=== PATIENT | female | born 1945 | race Caucasian/White ===

== ENCOUNTER 2016-04-14 22:48 | Emergency (ER) | payer MEDICARE, OTHER ==
[~2016-04-14] VITALS: Ht 162.6 cm; Wt 59.1 kg
[2016-04-14] MEDS ORDERED: LIDOCAINE (LIDODERM) 5% PATCH TOP ONE (23:15)
[2016-04-14] MEDS ORDERED: KETOROLAC 60 MG/2 ML (TORADOL) VIAL IM ONE (23:15)
[2016-04-14] MEDS ORDERED: oxyCODONE/ACETAMINOPHEN 5MG-325 MG (PERCOCET) TABLET PO ONE (23:15)
[2016-04-14] MEDS ORDERED: ORPHENADRINE 60 MG/2 ML (NORFLEX) AMP IM ONE (23:55)
[2016-04-14] MEDS ORDERED: ALBUTEROL 0.083% NEB SOLUTION 2.5 MG/3 ML VIAL INH ONE (23:55)
[2016-04-15 02:24] VITALS: BP 119/72
== END 2016-04-15 00:22 | disposition home or self-care (01) ==
LOC: ED 22:49
DX: S20.211A Contusion of right front wall of thorax, initial encounter (principal); X58.XXXA Exposure to other specified factors, initial encounter
CPT/HCPCS: 71101; 93005; 94640; 96372; 99284; A9270; J1885; J2360; J7613; 93010

== ENCOUNTER 2016-06-12 16:44 | Inpatient (IN) | payer MEDICARE, OTHER ==
[~2016-06-12] VITALS: Ht 162.6 cm; Wt 55.6 kg
[~2016-06-12 16:44] MED LIST: ACET325T38 PO; ALPR1TAB2 PO; AZIT250T PO; CYCL10TA45 PO; DIPH25CA79 PO; DOXY100C42 PO; FLC1T PO; GFN600TCR PO; IBP800T PO; LD5PT TOP; LEVA1.253 IH; METH1VIA2 SC; OXYC1TAB87 PO; PRD20T PO; TIOT18CA IH; TRM50T PO
[2016-06-12] MEDS ORDERED: HYDROmorphone 1 MG/ML (DILAUDID) SYRINGE IV ONE (17:25)
[2016-06-12 17:54] LABS: BILIRUBIN,URINE Negative (Negative); COLOR,URINE Yellow; GLUCOSE, URINE (UA) Negative (Negative); LEUKOCYTE ESTERASE ,URINE Negative (Negative); UROBILINOGEN,URINE 0.2 mg/dL (0.2-1.0)
[2016-06-12 17:55] LABS: BASOPHILS % (AUTO) 0 % (0-2); EOSINOPHILS # (AUTO) 0.1 10^3uL; EOSINOPHILS % (AUTO) 1 % (0-4); LYMPHOCYTES # (AUTO) 1.6 X10^3; MEAN CORPUSCULAR HEMOGLOBIN 30.8 PG (26.0-34.0); MEAN CORPUSCULAR HGB CONC 32.2 g/dL (31.0-37.0); MEAN CORPUSCULAR VOLUME 96 FL (80-100); MEAN PLATELET VOLUME 12.1 FL (6.0-9.5); MONOCYTES # (AUTO) 0.3 X10^3; MONOCYTES % (AUTO) 3 % (3-11); NEUTROPHILS # (AUTO) 8.2 X10^3; NEUTROPHILS % (AUTO) 81 % (51-67); PLATELET COUNT 309 10^3uL (150-450); WHITE BLOOD COUNT 10.15 10^3uL (4.0-11.0)
[2016-06-12 17:56] LABS: CLARITY,URINE Slightly Cloudy
[2016-06-12 17:59] LABS: RBC,URINE None Seen /HPF; URINE CENTRIFUGED VOLUME 12 mL
[2016-06-12 18:05] LABS: ANION GAP 17.4 MEQ/L (3-15); CALCULATED IONIZED CALCIUM 3.4 mg/dL (3.8-4.6); TOTAL PROTEIN 8.8 g/dL (6.4-8.5)
[2016-06-12] MEDS ORDERED: KETOROLAC 30 MG/ML (TORADOL) 1 ML VIAL IV ONE (18:20)
[2016-06-12] MEDS ORDERED: PIPERACILLIN/TAZOBACTAM 3.375 GM in SODIUM CHLORIDE 50 ML IV ONE (18:20)
--- NOTE | 2016-06-12 19:20 | NUR ---
Pt arrives to room 310 via wheelchair, accompanied by daughter and Ida RN. Alert and oriented x 4, Resp are even and nonlabored, hear wheezes bilateral with diminished bases, HRRR, BS are active x 4 quadrants. SL to RBH is patent, no redness, swelling, or s/s of infection noted at this time. Does have a temp of 100.8, does report chest pain, rates 6/10, Dr. Green is aware, EKG ordered, Tropi's ordered, ASA 325mg 1 tab PO given now per order. Gave Tylenol 650mg PO for temp. EKG showed NSR, Tropi is WNL, denies further pain or discomfort at this time. Call light is in reach, bed alarm is on, will continue to monitor.
[2016-06-12 19:24] VITALS: BP 120/73
[2016-06-12 19:27] VITALS: BP 120/73
[2016-06-12] MEDS ORDERED: ONDANSETRON 4 MG (ZOFRAN) ORAL DISSOLVE TAB PO PRN (19:40)
[2016-06-12] MEDS ORDERED: NITROGLYCERIN SUBLINGUAL 0.4 MG (NITROQUICK) TABLET SL PRN (19:40)
[2016-06-12] MEDS ORDERED: MAGNESIUM HYDROXIDE 80MG/ML (MILK OF MAGNESIA) 30 ML UDC PO PRN (19:40)
[2016-06-12] MEDS ORDERED: DOCUSATE SODIUM 100 MG (COLACE) CAP PO PRN (19:40)
[2016-06-12] MEDS ORDERED: ALBUTEROL 0.083% NEB SOLUTION 2.5 MG/3 ML VIAL INH PRN (19:40)
[2016-06-12] MEDS ORDERED: ACETAMINOPHEN 325 MG TAB (TYLENOL) PO PRN (19:40)
[2016-06-12] MEDS ORDERED: ALPRAZolam 0.5 MG (XANAX) TAB PO PRN (19:40)
[2016-06-12] MEDS ORDERED: diphenhydrAMINE 25 MG (BENADRYL) TABLET PO PRN (19:40)
[2016-06-12] MEDS ORDERED: PROMETHAZINE HCL INJ 12.5 MG in SODIUM CHLORIDE 25 ML IV PRN (19:40)
[2016-06-12] MEDS ORDERED: MAG HYDROX/AL HYDROX/SIMETH 200-200-20/5 ML (MAG-AL PLUS) 30 ML UDC PO PRN (19:40)
[2016-06-12] MEDS ORDERED: HYDROmorphone 1 MG/ML (DILAUDID) SYRINGE IV PRN (19:40)
[2016-06-12] MEDS ORDERED: CALCIUM CARBONATE CHEWABLE 300 MG (TUMS) TABLET PO PRN (19:40)
[2016-06-12] MEDS ORDERED: ASPIRIN 325 MG TAB PO ONE (19:40)
[2016-06-12] MEDS ORDERED: POLYETHYLENE GLYCOL 17 GM (MIRALAX) PACKET PO PRN (19:40)
--- NOTE | 2016-06-12 19:45 | History and Physical (E) ---
History & Physical PCP: Jose Walter CC: Pain HPI Deja Delaney is a 71 year old female admitted from ED 06/12 where she presented form home with complaint of pain. She has been having fever at home with chills, up to 100.3 reportedly. Feeling very achy all over, worse in hands and knees. Of note, she has RA and got a methotrexate injection 06/10. In ED, afebrile. Mildly hypertensive. Tach with HR 107. 94% RA. RR was 20. WBC 10.15 with 81% N but no bands. Chemistry fairly unremarkable but CRP was 7.70. UA suggestive of dehydration. CXR shows some linear basilar linear opacities, somewhat correlating with CT scan of chest from 04/19/2016. She was coughing some reportedly and there was overall concern of this being early pneumonia. CURB-65 score of 1. In ED she was given pip-tazo, NS bolus, and she was then admitted for further management. On arrival to unit, awake, interactive, oriented. Breathing easily on room air. Able to relate history. Sister is present and she contributes as well. Illness as described above. No worse dyspnea. Sister insists she is coughing more but patient says no. Has not used extra breathing treatments. No objective fever but has felt chilled. No rash. No URI symptoms. Has had some lower rib pains. Had told PCP about this but apparently there was concern this was more GI- related. She has history of ulcers so PCP had started omeprazole. Otherwise, she denies new complaints. 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 * Pneumonia * PSH * Partial gastrectomy * Asplenia (performed at time of partial gastrectomy) * Hysterectomy * Cholecystectomy * Appendectomy * Cataract surgery ALLERGIES: Please see list at end of report. HOME MEDICATIONS: Please see list at end of report. FH Mom of stomach cancer. Father of bone cancer. Sister of cervical cancer. Another sister of brain aneurysm and she had lupus. On additional sister has cervical cancer. SH Lives in her own home in [place]. Has two sons that live with her. Sister lives next door. 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 Quit smoking in 2013. No alcohol use. No drug use. ROS CONSTITUTION: Weight going down. Fever/chills as described above. Decreased appetite. HEENT: No change in vision or hearing. No sores in mouth, sore throat. CV: Sternal chest pains, worse with taking deep breath. PULM: Some increased but non-productive cough. GI: No upset stomach, nausea, vomiting, constipation, or diarrhea. No blood in stool. : No dysuria. No blood in urine. MS: Per HPI, exam. NEURO: No numbness or tingling. No weakness. INTEG: No rashes, lesions, or sores. ENDO: No heat or cold intolerance. No polydipsia or polyuria. HEME/LYMPH: No easy bruising or bleeding. No swollen glands. PSYCH: No change in mood or behavior. OBJECTIVE Vital Signs Date Time Temp Pulse Resp B/P Pulse Ox O2 Delivery O2 Flow Rate FiO2 06/12/16 16:58 99.1 107 20 169/95 94 Room Air GEN: Awake, alert, oriented, NAD at present. HEENT: EOMI, clear sclerae, somewhat dry oral mucosa. CV: Mildly tachy but regular without significant murmur. LUNGS: CTA B with faint and intermittent basilar rales. ABD: Soft, NT/ND with normal bowel sounds. EXTR: No C/C/E. Normal peripheral pulses. INTEG: No rash. Age related changes. NEURO: No focal motor neuro deficit. Weight: 56.8 kg Laboratory Results-14 Days 06/12/16 17:30: Urine Bacteria None seen, Urine Bilirubin Negative, Urine Blood Negative, Urine Clarity Slightly cloudy, Urine Collection Type Clean catch, Urine Color Yellow, Urine Glucose (UA) Negative, Urine Hyaline Casts 1+H, Urine Ketones TraceH, Urine Leukocyte Esterase Negative, Urine Microscopic RBC None seen, Urine Mucus 1+, Urine Nitrite Negative, Urine Protein 1+H, Urine Specific [place] 1.020, Urine Squamous Epithelial Cells 10-20, Urine Urobilinogen 0.2, Urine WBC 0-2, Urine pH 6.0, Volume Urine Centrifuged 12 ml 06/12/16 17:44: Alanine Aminotransferase (ALT/SGPT) 24L, Albumin 4.0, Albumin/Globulin Ratio 0.833L, Alkaline Phosphatase 101, Anion Gap 17.4H, Aspartate Amino Transf (AST/ SGOT) 26, BUN/Creatinine Ratio 18, Basophils # (Auto) 0.0, Basophils (%) (Auto) 0, Blood Urea Nitrogen 19#H, C-Reactive Protein 7.70H, Calcium Level 8.8, Calcium/Ionized Calcium Ratio 3.4L, Calculated Osmolality 275L, Carbon Dioxide Level 23, Chloride Level 106, Creatinine 1.03, Eosinophils # (Auto) 0.1, Eosinophils (%) (Auto) 1, Estimat Glomerular Filtration Rate 63.9, Estimated GFR (Non- 52.8, Glucose Level 105#, Hematocrit 35.10, Hemoglobin 11.3L, Lactic Acid Level 1.3, Lymphocytes # (Auto) 1.6, Lymphocytes ( %) (Auto) 15L, Mean Corpuscular Hemoglobin 30.8, Mean Corpuscular Hemoglobin Concent 32.2, Mean Corpuscular Volume 96, Mean Platelet Volume 12.1H, Monocytes # (Auto) 0.3, Monocytes (%) (Auto) 3, Neutrophils # (Auto) 8.2, Neutrophils (%) (Auto) 81H, Platelet Count 309, Potassium Level 4.7#, Red Blood Count 3.67L, Red Cell Distribution Width 14.1, Sodium Level 141, Total Bilirubin 0.5, Total Protein 8.8H, White Blood Count 10.15 MICRO 06/12 Blood culture PENDING 06/12 Sputum culture PENDING SAMPLE IMAGING 06/12/2016 CXR: Radiologist interpretation pending. Basilar linear opacities concerning for pneumonia. REFERENCE PROCEDURE: CT angiography Chest TECHNIQUE: After intravenous administration of contrast, thin section axial CT angiography of the chest was performed. MIP reconstructions were made. INDICATION: Right-sided chest pain. COMPARISON: CT chest of 12/18/2015. FINDINGS: No pulmonary emboli. Stable cardiomegaly without evidence of pulmonary hypertension or right ventricular strain. No pericardial effusion. Thoracic aorta is normal in caliber without evidence of dissection. Visualized thyroid is normal. No supraclavicular or axillary lymphadenopathy. No mediastinal, hilar, or juxtaphrenic lymphadenopathy. No pleural effusion or pneumothorax. Centrilobular emphysema is greatest in the lung apices. There has been development of multifocal subtotal consolidations in the lung bases, most confluent and greatest in the posterior right lower lobe. No suspicious pulmonary nodules. No endoluminal lesion in the trachea or central bronchi. Visualized portions of the upper abdomen are unremarkable allowing for the phase of contrast. No suspicious osseous lesions in the thorax. Bilateral breast implants are in place. There is suggestion of extracapsular rupture on the medial and inferior aspect of the left implant, unchanged from prior exam. IMPRESSION: 1. No pulmonary emboli. 2. Bilateral lower lobe patchy consolidations are greatest on the right and likely represent multifocal pneumonia. Followup PA and lateral chest radiographs in 4-6 weeks after appropriate medical management is recommended to ensure resolution. These consolidations are new since CT chest of 12/18/2015. ASSESSMENT Deja Delaney is a 71 year old female admitted from ED 06/12 with fever, chills, and CXR findings concerning for community acquired pneumonia. She has underlying emphysematous COPD and she has immunosuppression due to steroid use and methotrexate for RA. She has other chronic problems. PLAN * Acute Respiratory Distress: Mild on admit. Oxygen protocol, IS. * Community Acquired Pneumonia: Complex because of history of immunosuppression and underlying COPD. Blood culture pending. Sputum pending sample. Pip-tazo started in ED. Continued on admit. Could potentially de-escalate pending culture results. * COPD with Acute Exacerbation: Tiotropium, albuterol (sub for levalbuterol.) Guaifenesin. Prednisone burst. * Chest Pain: Likely pleuritic but cannot rule out ACS. Check troponin trend, EKG. Aspirin 324 mg given on admit. Continue daily. * Dehydration: NS bolus given in ED. Additional 1 L maintenance. I&O, daily weight. * Prophylaxis: Enoxaparin * F/E/N: Genearal diet. IVF as above. Peripheral IV. I&O, daily weight. * Code Status: Full * Dispo: Inpatient. Expect 2-3 day stay. CHRONIC ISSUES * Anxiety: alprazolam * Insomnia: Diphenhydramine * Chronic Pain, RA: Ibuprofen, tramadol Allergies/Home Medications Allergies: Coded Allergies: No Known Allergies (Verified Allergy, Unknown, 01/02/16) Reported Home Medications Scheduled Diphenhydramine HCl (Benadryl) 25 MG PO HS (Reported) Folic Acid (Folic Acid) 1 MG PO DAILY (Reported) Ibuprofen (Ibuprofen) 800 MG PO TID (Reported) Lidocaine HCl (Lidoderm 5% Patch) 1 EA TOP DAILY Methotrexate Sodium/Pf (Methotrexate 1 gm Vial) 0.06 GM IJ UD (Reported) Oxycodone HCl/Acetaminophen (Percocet 5mg/325mg) 1-2 TAB PO Q 6H PRN Tiotropium [place] (Spiriva) 18 MCG IH DAILY (Reported) Scheduled PRN Acetaminophen (Tylenol) 650 MG PO Q6H PRN PRN PAIN (Reported) Alprazolam (Xanax) 1 MG PO TID PRN PRN ANXIETY (Reported) Cyclobenzaprine HCl (Flexeril) 10 MG PO TID PRN PRN PAIN Levalbuterol HCl (Xopenex) 1.25 MG IH QID PRN PRN DYSPNEA (Reported) Tramadol HCl (Tramadol HCl) 1-2 TAB PO Q6H PRN PRN PAIN Copies to: End of Report . MER LEBLANC MD Jun 12, 2016 19:00
[2016-06-12 19:47] VITALS: BP 120/73
[2016-06-12] MEDS ORDERED: SODIUM CHLORIDE FLUSH 10 ML ONE (19:58)
[2016-06-12] MEDS ORDERED: predniSONE 10 MG (DELTASONE) TABLET ONE (19:58)
[2016-06-12] MEDS: predniSONE 20 MG (DELTASONE) TABLET PO SCH (20:08)
[2016-06-12] MEDS: guaiFENesin ER 600 MG (MUCINEX) TAB PO SCH (20:12)
--- NOTE | 2016-06-12 20:44 | NUR ---
I visited with Mrs Minaya about her respiratory interventions. She stated that she only takes her Spiriva when she is short of breath, and does not like Albuterol, because it "gives me the shakes". I explained the proper use of Spiriva and that we would talk to the Dr in the am. She also told me that she does not want to become dependant on the medications. IS not done this evening due to Pt being a little upset, I was able to bet her to take some deep breaths with breath hold for me. SPO2 92% on RA, no respiratory distress at this time.
[2016-06-12] MEDS ORDERED: PIPERACILLIN/TAZOBACTAM 3.375 GM in SODIUM CHLORIDE 100 ML IV SCH (23:00)
[2016-06-12] MEDS: PIPERACILLIN/TAZOBACTAM 3.375 GM in SODIUM CHLORIDE 100 ML IV SCH (23:51)
[2016-06-13 00:14] VITALS: BP 108/68
[2016-06-13 04:19] VITALS: BP 100/65
--- NOTE | 2016-06-13 04:47 | NUR ---
Pt is resting in bed asleep, Resp are even and nonlabored, does not appear to be in pain or discomfort at this time. Call light is in reach, bed alarm is on, will continue to monitor.
[2016-06-13 06:00] LABS: MEAN CORPUSCULAR HGB CONC 32.2 g/dL (31.0-37.0); MEAN CORPUSCULAR VOLUME 96 FL (80-100); MEAN PLATELET VOLUME 11.9 FL (6.0-9.5); PLATELET COUNT 342 10^3uL (150-450); WHITE BLOOD COUNT 5.76 10^3uL (4.0-11.0)
[2016-06-13] MEDS: PIPERACILLIN/TAZOBACTAM 3.375 GM in SODIUM CHLORIDE 100 ML IV SCH ×3 (06:10→21:33)
[2016-06-13 06:12] LABS: ALBUMIN 3.3 g/dL (3.4-5.0); ANION GAP 14.9 MEQ/L (3-15); PHOSPHORUS 4.8 mg/dL (2.4-4.9)
[2016-06-13 06:15] LABS: BAND NEUTROPHILS % 1 % (0-6); EOSINOPHILS % 0 % (0-4); LYMPHOCYTES # 0.5 #; MONOCYTES # 0.1 #; MONOCYTES % 2 % (3-11); SEGMENTED NEUTROPHILS % 88 % (51-67); TOTAL CELLS COUNTED 100
[2016-06-13 06:16] LABS: RBC MORPH NORMAL (NORMAL)
[2016-06-13 07:33] VITALS: BP 92/51
--- NOTE | 2016-06-13 07:39 | Diagnostic Imaging Report ---
INDICATION: Respiratory distress. COMPARISON: 02/22/2015. FINDINGS: Bibasilar infiltrates, greater right than left have developed since the prior, suspect for pneumonia. The heart size is within normal limits. There is no free air beneath the diaphragms. No definite pleural effusion. IMPRESSION: Bilateral lower lobe infiltrates compatible with pneumonia reflect change from prior. Dictated by: Dictated on workstation # [id number]
[2016-06-13] MEDS: predniSONE 20 MG (DELTASONE) TABLET PO SCH (07:52)
--- NOTE | 2016-06-13 08:59 | Progress Note (E) ---
Progress Note S: Awake a nd reports feeling better- still coughing up a little phlegm, no vomiting, no chest paain. tolerated breakfast very well O: Vital Signs Date Time Temp Pulse Resp B/P Pulse Ox O2 Delivery O2 Flow Rate FiO2 06/13/16 07:33 96.8 70 16 92/51 93 Room air I & O Past 24 hrs 06/13/16 07:00 Intake Total 387 ml Output Total 450 ml Balance -63 ml Intake Oral 387 ml Output Urine Total 450 ml GEN: Awake, alert, oriented, NAD at present. HEENT: EOMI, clear sclerae, moist oral mucosa. CV: regular without significant murmur. LUNGS: CTA B with faint and intermittent basilar rales. ABD: Soft, NT/ND with normal bowel sounds. EXTR: No C/C/E. Normal peripheral pulses. INTEG: No rash. Age related changes. NEURO: No focal motor neuro deficit. Weight: 56.8 kg Laboratory Results Past 24 Hrs 06/12/16 17:30: Urine Bacteria None seen, Urine Bilirubin Negative, Urine Blood Negative, Urine Clarity Slightly cloudy, Urine Collection Type Clean catch, Urine Color Yellow, Urine Glucose (UA) Negative, Urine Hyaline Casts 1+, Urine Ketones Trace, Urine Leukocyte Esterase Negative, Urine Microscopic RBC None seen, Urine Mucus 1+, Urine Nitrite Negative, Urine Protein 1+, Urine Specific [place] 1.020, Urine Squamous Epithelial Cells 10-20, Urine Urobilinogen 0.2, Urine WBC 0-2, Urine pH 6.0, Volume Urine Centrifuged 12 ml 06/12/16 17:44: Alanine Aminotransferase (ALT/SGPT) 24, Albumin 4.0, Albumin/Globulin Ratio 0.833, Alkaline Phosphatase 101, Anion Gap 17.4, Aspartate Amino Transf (AST/ SGOT) 26, BUN/Creatinine Ratio 18, Basophils # (Auto) 0.0, Basophils (%) (Auto) 0, Blood Urea Nitrogen 19, C-Reactive Protein 7.70, Calcium Level 8.8, Calcium/ Ionized Calcium Ratio 3.4, Calculated Osmolality 275, Carbon Dioxide Level 23, Chloride Level 106, Creatinine 1.03, Eosinophils # (Auto) 0.1, Eosinophils (%) ( Auto) 1, Estimat Glomerular Filtration Rate 63.9, Estimated GFR (Non- 52.8, Glucose Level 105, Hematocrit 35.10, Hemoglobin 11.3, Lactic Acid Level 1.3, Lymphocytes # (Auto) 1.6, Lymphocytes (%) (Auto) 15, Mean Corpuscular Hemoglobin 30.8, Mean Corpuscular Hemoglobin Concent 32.2, Mean Corpuscular Volume 96, Mean Platelet Volume 12.1, Monocytes # (Auto) 0.3, Monocytes (%) (Auto) 3, Neutrophils # (Auto) 8.2, Neutrophils (%) (Auto) 81, Platelet Count 309, Potassium Level 4.7, Red Blood Count 3.67, Red Cell Distribution Width 14.1, Sodium Level 141, Total Bilirubin 0.5, Total Protein 8.8, Troponin I < 0.012, White Blood Count 10.15 06/12/16 21:55: Troponin I < 0.012 06/13/16 05:40: Albumin 3.3, Anion Gap 14.9, Basophils # (Auto) , Basophils (%) (Auto) , Blood Urea Nitrogen 15, Calcium Level 8.3, Carbon Dioxide Level 22, Chloride Level 109 , Creatinine 0.88, Eosinophils # (Auto) , Eosinophils (%) (Auto) , Estimat Glomerular Filtration Rate 76.6, Estimated GFR (Non- 63.3, Glucose Level 148, Hematocrit 36.30, Hemoglobin 11.7, Lymphocytes # (Auto) , Lymphocytes (%) (Auto) , Mean Corpuscular Hemoglobin 31.0, Mean Corpuscular Hemoglobin Concent 32.2, Mean Corpuscular Volume 96, Mean Platelet Volume 11.9, Monocytes # (Auto) , Monocytes (%) (Auto) , Neutrophils # (Auto) , Neutrophils ( %) (Auto) , Platelet Count 342, Potassium Level 4.1, Red Blood Count 3.78, Red Cell Distribution Width 14.3, Sodium Level 142, White Blood Count 5.76, Absolute Band Neutrophils 0.1, Band Neutrophils % 1, Basophils # (Manual) 0.0, Basophils % (Manual) 0, Blood Morphology Comment Normal, Differential Total Cells Counted 100, Eosinophils # 0.0, Eosinophils % (Manual) 0, Lymphocytes # 0.5, Lymphocytes % (Manual) 9, Monocytes # 0.1, Monocytes % (Manual) 2, Neutrophils # 5.1, Phosphorus Level 4.8, Segmented Neutrophils % 88 MICRO 06/12 Blood culture PENDING 04/16 Sputum culture PENDING SAMPLE IMAGING 06/12/2016 CXR: Radiologist interpretation pending. Basilar linear opacities concerning for pneumonia. REFERENCE PROCEDURE: CT angiography Chest TECHNIQUE: After intravenous administration of contrast, thin section axial CT angiography of the chest was performed. MIP reconstructions were made. INDICATION: Right-sided chest pain. COMPARISON: CT chest of 12/18/2015. FINDINGS: No pulmonary emboli. Stable cardiomegaly without evidence of pulmonary hypertension or right ventricular strain. No pericardial effusion. Thoracic aorta is normal in caliber without evidence of dissection. Visualized thyroid is normal. No supraclavicular or axillary lymphadenopathy. No mediastinal, hilar, or juxtaphrenic lymphadenopathy. No pleural effusion or pneumothorax. Centrilobular emphysema is greatest in the lung apices. There has been development of multifocal subtotal consolidations in the lung bases, most confluent and greatest in the posterior right lower lobe. No suspicious pulmonary nodules. No endoluminal lesion in the trachea or central bronchi. Visualized portions of the upper abdomen are unremarkable allowing for the phase of contrast. No suspicious osseous lesions in the thorax. Bilateral breast implants are in place. There is suggestion of extracapsular rupture on the medial and inferior aspect of the left implant, unchanged from prior exam. IMPRESSION: 1. No pulmonary emboli. 2. Bilateral lower lobe patchy consolidations are greatest on the right and likely represent multifocal pneumonia. Followup PA and lateral chest radiographs in 4-6 weeks after appropriate medical management is recommended to ensure resolution. These consolidations are new since CT chest of 12/18/2015. ASSESSMENT Deja Delaney is a 71 year old female admitted from ED 06/12 with fever, chills, and CXR findings concerning for community acquired pneumonia. She has underlying emphysematous COPD and she has immunosuppression due to steroid use and methotrexate for RA. She has other chronic problems. PLAN * Acute Respiratory Distress: Mild on admit. Oxygen protocol, IS. * Community Acquired Pneumonia: Complex because of history of immunosuppression and underlying COPD. Blood culture pending. Sputum pending sample. Pip-tazo started in ED. Continued on admit. Could potentially de-escalate pending culture results. * COPD with Acute Exacerbation: Tiotropium, albuterol (sub for levalbuterol.) Guaifenesin. Prednisone burst. * Chest Pain: Likely pleuritic but cannot rule out ACS. Check troponin trend, EKG. Aspirin 324 mg given on admit. Continue daily. * Dehydration: NS bolus given in ED. Additional 1 L maintenance. I&O, daily weight. * Prophylaxis: Enoxaparin * F/E/N: Genearal diet. IVF as above. Peripheral IV. I&O, daily weight. * Code Status: Full * Dispo: Inpatient. Expect 2-3 day stay. CHRONIC ISSUES * Anxiety: alprazolam * Insomnia: Diphenhydramine * Chronic Pain, RA: Ibuprofen, tramadol Dr Wu' Note : This alert 71 year old female assures me she is feeling better today.She is still coughing some.She denies chest pain and abdominal pain presently. she denies leg pain or edema as a current problem.She believes he rcough is a little better. heart has a RRR lungs-show a RRR and without wheezing abdomen is soft and bs are active extremities are without cyanosis and have no edema assessment: bilateral lower lobe pneumonia copd chest pain PLAN: CONTINUE PULMONARY TOILET AND iv ANTIBIOTICS. Maribel Carvajal APRN Jun 13, 2016 08:59 DMITRIY WU DO Jun 13, 2016 14:41
--- NOTE | 2016-06-13 09:05 | NUR ---
NUTRITION ASSESSMENT Level 1 Patient: Deja Huang Age/Sex: 71/F Date Screened: 06-13-16 Weight: 122.3#/55.6 kg Height: 64 inches Primary Diagnosis: pneumonia Diet Order: regular Relevant labs: glucose 148 Food allergies: N Nutrition Assessment Criteria Age over 80: N Body Mass Index (BMI) under 19: N Admission Screening Indicates Risk? 3 points Moderate/High Risk Diagnosis: 3 points TPN or PPN: N NPO or clear liquid diet: N Serum Glucose <70 or >180: N Hgb A1c >6.7: N/A Total: 6 points Risk Screen: __ Patient at low nutritional risk based on available data; reevaluate in 5-7 days __ Patient at moderate nutritional risk based on available data; reevaluate in 3-5 days _X_ Patient at high nutritional risk; complete Nutrition Assessment within 48 hours of admission.
[2016-06-13] MEDS ORDERED: AC500T PO (09:24)
[2016-06-13] MEDS ORDERED: IBUP-1772 PO (09:25)
[2016-06-13] MEDS ORDERED: TRM50T PO (09:28)
[2016-06-13] MEDS: guaiFENesin ER 600 MG (MUCINEX) TAB PO SCH ×2 (09:46→20:08)
[2016-06-13] MEDS: FOLIC ACID 1 MG TAB PO SCH (09:47)
[2016-06-13] MEDS: ASPIRIN 81 MG CHEW (CHILDREN'S ASA) PO SCH (09:47)
[2016-06-13] MEDS ORDERED: OMEP20CA12 PO (09:47)
[2016-06-13] MEDS: IBUPROFEN 600 MG (MOTRIN) TAB PO PRN ×2 (09:47→20:07)
[2016-06-13] MEDS: ENOXAPARIN 40 MG/0.4 ML (LOVENOX) SYR SC SCH (09:47)
--- NOTE | 2016-06-13 10:59 | NUR ---
MED REC COMPLETE--current med list obtained from external med history application and patient interview conducted by Gerardo Hurley Pharm. D. Candidate 2017.
[2016-06-13] MEDS ORDERED: NS FLUSH 3 ML PRN IV (11:05)
[2016-06-13] MEDS ORDERED: NS FLUSH 10 ML PRN IV (11:05)
[2016-06-13 11:22] VITALS: BP 105/67
--- NOTE | 2016-06-13 11:26 | NUR ---
NUTRITION ASSESSMENT Level II Patient: Deja Huang Age/Sex: 71/F Date Assessed: 06-13-16 ASSESSMENT Pertinent History: Patient admitted with pneumonia and screened at high nutritional risk secondary to diagnosis and stated weight loss. PMHx includes COPD with emphysema, rheumatoid arthritis, and PUD with partial gastrectomy. She lives at home with two sons. She denies GI concerns but reports weight loss of unknown amount and decreased appetite. According to documented weight hx. in the computer, she weighed 127# in June 2013, 145# in 2014, and 141# in 2015. Meds/Nutrition: Folic Acid, Prednisone Weight: 122.3#/55.6 kg Height: 64 inches Body Mass Index (BMI): 21.0 [place] Body Weight : 120#/54.5 kg % IBW: 101% GASTROINTESTINAL Appetite: poor, eating 15% Diet Order: regular Unintentional loss of >10 lbs. in 3 months: Yes Difficult to chew/swallow: N Diabetes: N Relevant Labs: glucose 148 Calculations for Nutritional Assessment Estimated calorie needs: 25-28 kcals/kg = 1,375-1,540 kcals Estimated protein needs: 1.0-1.3 g/kg = 55-71 g./day DIAGNOSIS 1. Nutrition Diagnosis: Inadequate intake related to decreased appetite and increased work of breathing as evidenced by 18# weight loss in the past 5 months (13%) and c/o poor appetite with eating 15% so far since admission. NUTRITIONAL INTERVENTION Goal: Patient will receive adequate nutrition to meet her nutritional needs. Plan: Will provide regular diet as ordered and monitor intake for adequacy. Recommend smaller portions with supplemental snacks until her appetite returns; will provide Ensure with lunch and dinner for additional kcals/protein. MONITORING & EVALUATION _X_ Monitor patients menu selections _X_ Monitor patients food intake per nursing notes __ Monitor NPO/clear liquid days __ Monitor lab values __ Monitor I&O __ Other
--- NOTE | 2016-06-13 13:53 | NUR ---
MULTIDISCIPLINARY MTG/DR. WU: Pt. is feeling better and is on room air. Pt. is eating well. Sputum culture was obtained this morning. Pt. will possibly discharge tomorrow. No discharge needs identified at this time.
[2016-06-13] MEDS ORDERED: SODIUM CHLORIDE 100 ML ONE (14:08)
[2016-06-13] MEDS: TIOTROPIUM 18 MCG/CAP (SPIRIVA) INHALER (5 CAPS) IH SCH (15:08)
[2016-06-13 15:23] VITALS: BP 109/63
[2016-06-13 19:57] VITALS: BP 128/81
--- NOTE | 2016-06-13 20:00 | NUR ---
Resting in bed. Skin warm and dry. Color slightly pale. Has intermittent non-productive cough. No discomforts voiced at this time. States that she does not sleep well when taking prednisone. No needs at this time. Call light within reach.
--- NOTE | 2016-06-13 20:07 | NUR ---
Ibuprofen 600 mg administered po for generalized arthritis discomfort.
--- NOTE | 2016-06-13 20:30 | NUR ---
Pt found lying in bed on RA, SPO2 95%, HR 85, RR 16 with clear and diminished BS bilaterally. Pt is in no respiratory distress at this time. IS X 5 X 1250 ml with moderate effort with coaching. No PRN respiratory interventions indicated at this time.
--- NOTE | 2016-06-14 | NUR ---
Resting in bed. Watching TV. No discomforts voiced.
[2016-06-14 00:08] VITALS: BP 102/58
--- NOTE | 2016-06-14 01:50 | NUR ---
Resting still awake. No discomfort. Xanax 1mg administered po for restlessness. Call light within reach.
[2016-06-14 04:23] VITALS: BP 152/80
[2016-06-14] MEDS: PIPERACILLIN/TAZOBACTAM 3.375 GM in SODIUM CHLORIDE 100 ML IV SCH (05:16)
[2016-06-14 07:25] VITALS: BP 125/76
[2016-06-14] MEDS: TIOTROPIUM 18 MCG/CAP (SPIRIVA) INHALER (5 CAPS) IH SCH (07:29)
[2016-06-14] MEDS: FOLIC ACID 1 MG TAB PO SCH (08:18)
[2016-06-14] MEDS: ASPIRIN 81 MG CHEW (CHILDREN'S ASA) PO SCH (08:18)
[2016-06-14] MEDS: predniSONE 20 MG (DELTASONE) TABLET PO SCH (08:18)
[2016-06-14] MEDS: guaiFENesin ER 600 MG (MUCINEX) TAB PO SCH (08:18)
[2016-06-14] MEDS: ENOXAPARIN 40 MG/0.4 ML (LOVENOX) SYR SC SCH (08:19)
[2016-06-14] MEDS: IBUPROFEN 600 MG (MOTRIN) TAB PO PRN (08:23)
--- NOTE | 2016-06-14 08:25 | NUR ---
PRN Motrin given at this time for c/o R knee pain rated 3/10. Pt states Ultram does not work well for her. Pt is sitting up in chair. States she is starting to feel back to her normal again. Skin warm, dry, intact. Resprs nonlabored, even on RA. Zosyn infusing in RH. Pt denies needs.
[2016-06-14] MEDS ORDERED: NS FLUSH 3 ML DAILY IV SCH (09:00)
[2016-06-14] MEDS ORDERED: PRD20T PO ×3 (11:18→13:09)
[2016-06-14 11:26] VITALS: BP 125/81
[2016-06-14] MEDS ORDERED: CEFD300C PO (13:08)
[2016-06-14] MEDS ORDERED: CPR500T PO (13:13)
--- NOTE | 2016-06-14 13:16 | Discharge Instructions (E) ---
Discharge Instructions Activity Instructions as tolerates Doctor's Appointment follow up Dr Casas this week Discharge Diet: Regular Maribel Carvajal APRN Jun 14, 2016 13:16
--- NOTE | 2016-06-14 13:26 | Progress Note (E) ---
Progress Note Dr. Wu' Note: pt. is doing well today.She denies chest pain,abdominal pain and states her cough has lessened a lot. She denies good rest last noght because the prednisone kept her awake.We still lack a report on any bacteria ID in her sputum. GEN: Awake, alert, oriented, NAD at present. HEENT: EOMI, clear sclerae, moist oral mucosa. CV: regular rate and rhythm without significant murmur. LUNGS: CTA B with faint basilar rales. ABD: Soft, NT/ND with normal bowel sounds. EXTR: No C/C/E. Normal peripheral pulses. INTEG: No rash. and no bruising NEURO: No focal motor neuro deficits ASSESSMENT Deja Delaney is a 71 year old female admitted from ED 06/12 with fever , and chills. CXR findings are positive for community acquired pneumonia. She has underlying emphysematous COPD and she has immunosuppression due to steroid use and methotrexate for RA. She has other chronic problems. PLAN * Acute Respiratory Distress: Mild on admit. * Community Acquired Pneumonia: Complex because of history of immunosuppression and underlying COPD. Blood culture pending. Sputum pending sample. Continued o. * COPD with Acute Exacerbation: Tiotropium, albuterol (sub for levalbuterol.) Guaifenesin. Prednisone burst. * Chest Pain: Likely pleuritic .. * Dehydration: NS bolus given in ED. * F/E/N: Genearal diet. IVF as above. Peripheral IV. I&O, daily weight. * Code Status: Full We do plan to discharge patient to home today. DMITRIY WU DO Jun 14, 2016 13:26
[2016-06-14] MEDS ORDERED: LVF500T PO (13:35)
--- NOTE | 2016-06-14 13:44 | Discharge Summary (E FT) ---
Discharge Summary (E FT) Admit Date Jun 12, 2016 at 18:48 Discharge Date May Admitting Provider Williams Green MD Primary Care Provider Jose Walter Attending Provider Williams Green MD Consulting Provider Hospital Course Summary ptSonia was admitted to our hospital through the ED with a diagnosis of Bilateral pneumonia. She was placed on zosyn as her antibiotic.she did well on Zosyn and is now ready to go home. Laboratory Results-14 Days 06/12/16 17:30: Urine Bacteria None seen, Urine Bilirubin Negative, Urine Blood Negative, Urine Clarity Slightly cloudy, Urine Collection Type Clean catch, Urine Color Yellow, Urine Glucose (UA) Negative, Urine Hyaline Casts 1+H, Urine Ketones TraceH, Urine Leukocyte Esterase Negative, Urine Microscopic RBC None seen, Urine Mucus 1+, Urine Nitrite Negative, Urine Protein 1+H, Urine Specific [place] 1.020, Urine Squamous Epithelial Cells 10-20, Urine Urobilinogen 0.2, Urine WBC 0-2, Urine pH 6.0, Volume Urine Centrifuged 12 ml 06/12/16 17:44: Alanine Aminotransferase (ALT/SGPT) 24L, Albumin 4.0, Albumin/Globulin Ratio 0.833L, Alkaline Phosphatase 101, Anion Gap 17.4H, Aspartate Amino Transf (AST/ SGOT) 26, BUN/Creatinine Ratio 18, Basophils # (Auto) 0.0, Basophils (%) (Auto) 0, Blood Urea Nitrogen 19#H, C-Reactive Protein 7.70H, Calcium Level 8.8, Calcium/Ionized Calcium Ratio 3.4L, Calculated Osmolality 275L, Carbon Dioxide Level 23, Chloride Level 106, Creatinine 1.03, Eosinophils # (Auto) 0.1, Eosinophils (%) (Auto) 1, Estimat Glomerular Filtration Rate 63.9, Estimated GFR (Non- 52.8, Glucose Level 105#, Hematocrit 35.10, Hemoglobin 11.3L, Lactic Acid Level 1.3, Lymphocytes # (Auto) 1.6, Lymphocytes ( %) (Auto) 15L, Mean Corpuscular Hemoglobin 30.8, Mean Corpuscular Hemoglobin Concent 32.2, Mean Corpuscular Volume 96, Mean Platelet Volume 12.1H, Monocytes # (Auto) 0.3, Monocytes (%) (Auto) 3, Neutrophils # (Auto) 8.2, Neutrophils (%) (Auto) 81H, Platelet Count 309, Potassium Level 4.7#, Red Blood Count 3.67L, Red Cell Distribution Width 14.1, Sodium Level 141, Total Bilirubin 0.5, Total Protein 8.8H, White Blood Count 10.15 MICRO 06/12 Blood culture PENDING 06/12 Sputum culture PENDING SAMPLE IMAGING 06/12/2016 CXR: Radiologist interpretation pending. Basilar linear opacities concerning for pneumonia. REFERENCE PROCEDURE: CT angiography Chest TECHNIQUE: After intravenous administration of contrast, thin section axial CT angiography of the chest was performed. MIP reconstructions were made. INDICATION: Right-sided chest pain. COMPARISON: CT chest of 12/18/2015. FINDINGS: No pulmonary emboli. Stable cardiomegaly without evidence of pulmonary hypertension or right ventricular strain. No pericardial effusion. Thoracic aorta is normal in caliber without evidence of dissection. Visualized thyroid is normal. No supraclavicular or axillary lymphadenopathy. No mediastinal, hilar, or juxtaphrenic lymphadenopathy. No pleural effusion or pneumothorax. Centrilobular emphysema is greatest in the lung apices. There has been development of multifocal subtotal consolidations in the lung bases, most confluent and greatest in the posterior right lower lobe. No suspicious pulmonary nodules. No endoluminal lesion in the trachea or central bronchi. Visualized portions of the upper abdomen are unremarkable allowing for the phase of contrast. No suspicious osseous lesions in the thorax. Bilateral breast implants are in place. There is suggestion of extracapsular rupture on the medial and inferior aspect of the left implant, unchanged from prior exam. IMPRESSION: 1. No pulmonary emboli. 2. Bilateral lower lobe patchy consolidations are greatest on the right and likely represent multifocal pneumonia. Followup PA and lateral chest radiographs in 4-6 weeks after appropriate medical management is recommended to ensure resolution. These consolidations are new since CT chest of We never did get a good culture on this patient's sputum.We plan to send her home on levaquin 500mg a day for 8 days. Final diagnoses: * Acute Respiratory Distress: Resolved * Community Acquired Pneumonia: Complex because of history of immunosuppression and underlying COPD. Blood culture NEGATIVE Sputum NORMAL TIFFANIE * COPD with Acute Exacerbation: Resolved. * Chest Pain: Likely pleuritic .. * Dehydration: [NS bolus given in ED] Plan; Discharge patient to home. New rx is for levaquin 500 mg once a day for 8 days. Discharge New Medications: Levofloxacin (Levaquin) 500 Mg Tab 500 MG PO DAILY Infection #8 Ref 0 TAB Prednisone (Deltasone) 20 Mg Tab 20 MG PO DAILY@0800 #2 TAB Continued Medications: Acetaminophen (Acetaminophen) 500 Mg Tablet 500 MG PO Q4H PRN PAIN TAB Alprazolam (Xanax) 1 Mg Tablet 1 MG PO TID PRN ANXIETY Diphenhydramine HCl (Benadryl) 25 Mg Capsule 25 MG PO NEEDED PRN hives Folic Acid (Folic Acid) 1 Mg Tablet 1 MG PO DAILY TAB Ibuprofen (Ibuprofen) 600 Mg Tablet 600 MG PO TID Anti-Inflammatory Ref 0 TAB Levalbuterol HCl (Xopenex) 1.25 Mg/3 Ml Vial.neb 1.25 MG IH QID PRN DYSPNEA Methotrexate Sodium/Pf (Methotrexate 1 gm Vial) 1 Gm Vial 15 MG SC Weekly VIAL Omeprazole (Omeprazole) 20 Mg Capsule.dr 20-40 MG PO BID CAP Tiotropium [place] (Spiriva) 18 Mcg Cap.w.dev 18 MCG IH DAILY PRN DYSPNEA Tramadol HCl (Tramadol HCl) 50 Mg Tablet 50 MG PO DAILY Pain Ref 0 TAB Copies to: Additional Provider: Jose Walter End of Report . DMITRIY WU DO Jun 14, 2016 13:44
--- NOTE | 2016-06-14 15:02 | NUR ---
Discharge instructions reviewed with patient, demonstrates understanding. SL removed with catheter tip intact. Pressure held, bandage applied. Belongings and DC packet sent with patient. Pt dismissed at this time via ambulation accompanied by family member and Alis Gomez CNA.
== END 2016-06-14 15:02 | disposition home or self-care (01) | DRG 190 ==
LOC: ED 16:45 → MED/SURG 18:48
PROVIDERS: ADMIT Internal Medicine; ATTEND Internal Medicine
DX: J44.0 Chronic obstructive pulmonary disease with (acute) lower respiratory infection (principal); J18.9 Pneumonia, unspecified organism; J44.1 Chronic obstructive pulmonary disease with (acute) exacerbation; E86.0 Dehydration; F41.9 Anxiety disorder, unspecified; G47.00 Insomnia, unspecified; M06.9 Rheumatoid arthritis, unspecified; G89.29 Other chronic pain
CPT/HCPCS: 36415; 71020; 80053; 80069; 81003; 81015; 83605; 84484; 85025; 86140; 87040; 87070; 87205; 93005; 94640; 94760; 96361; 96365; 96375; 99283; 99284